=== PATIENT | male | born 1945 | race Caucasian/White ===

== ENCOUNTER 2024-07-02 17:55 | Emergency (ER) | payer SELFPAY ==
[2024-07-02 18:17] VITALS: BP 146/86
[2024-07-02 21:00] VITALS: BP 138/72
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
[2024-07-02] MEDS: KEFLEX 500 MG PO (22:09)
== END 2024-07-02 22:29 | disposition home or self-care (01) ==
LOC: EMR 17:55
PROVIDERS: EMERGENCY PHYSICIAN Student in an Organized Health Care Education/Training Program
DX: S61.211A Laceration without foreign body of left index finger without damage to nail, initial encounter (principal); S61.213A Laceration without foreign body of left middle finger without damage to nail, initial encounter; S60.512A Abrasion of left hand, initial encounter; V47.9XXA Unspecified car occupant injured in collision with fixed or stationary object in traffic accident, initial encounter; Y92.414 Local residential or business street as the place of occurrence of the external cause; E78.00 Pure hypercholesterolemia, unspecified
CPT/HCPCS: 12001; 99283; 73130